=== PATIENT | male | born 1970 | race American Indian/Alaskan Native ===

== ENCOUNTER 2017-01-30 14:26 | Emergency (ER) | payer OTHER ==
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
[2017-01-30] MEDS ORDERED: FLEXERIL PO ONE (19:11)
[2017-01-30] MEDS ORDERED: PERCOCET 5/325 PO ONE (19:11)
[2017-01-30 20:12] VITALS: BP 160/90
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
== END 2017-01-30 20:43 | disposition home or self-care (01) ==
LOC: ED 14:26
DX: S89.92XA Unspecified injury of left lower leg, initial encounter (principal); I10 Essential (primary) hypertension; V49.49XA Driver injured in collision with other motor vehicles in traffic accident, initial encounter; X58.XXXA Exposure to other specified factors, initial encounter; Y93.9 Activity, unspecified; Y92.9 Unspecified place or not applicable; Y99.9 Unspecified external cause status
CPT/HCPCS: 99283